=== PATIENT | female | born 1985 | race African-American/Black ===

== ENCOUNTER 2019-09-23 18:23 | Emergency (ER) | payer OTHER ==
[~2019-09-23] VITALS: Ht 170.2 cm; Wt 111.1 kg
[2019-09-23] MEDS ORDERED: AMLODIPINE BESY10 MG ORAL (18:37)
[2019-09-23] MEDS ORDERED: FERROUS SULFAT325 MG ORAL (18:37)
--- NOTE | 2019-09-23 18:40 | NUR ---
ED Nurse Note: Patient walked into ED c/o vaginal bleeding, patient was diagnosed with uterine fibroids, abdominal pain 08/28 radiating to lower back and anemia. patient was told by her PMD to come to ED for further evaluation. patient reports she is on period started on 09/19/19, that is when she started having this pain. patient is alert awake x4 ambulatory, breathing unlabored and even, speaking in full sentences. patient placed on a gown and on a monitor. patient also reports high blood pressure.
[2019-09-23 19:00] VITALS: BP 175/115
--- NOTE | 2019-09-23 19:16 | Emergency Room Report ---
History of Present Illness General Chief Complaint: Hypertension Source: Patient Present Illness HPI Disclaimer: Please note that this report is being documented using DRAGON technology. This can lead to erroneous entry secondary to incorrect interpretation by the dictating instrument. HPI: 34-year-old female with history of uterine fibroid status post embolization , hypertension presents for evaluation of elevated blood pressures and vaginal bleeding. Patient states symptoms have been present for several days. She started her menses on 09/19. She has had heavy flow and lower pelvic cramping. Going through 6-10 pads daily for the past 5 days. She was at her PMDs office today where she found to have elevated blood pressures with systolics in the 210s. She is complaining of headache, chest pressure and some shortness of breath. She also noted some abdominal pain and vomiting over the past few days. No vomiting today, last emesis was yesterday. It was nonbloody and nonbilious. Denies diarrhea, melena or hematochezia. Denies dysuria or hematuria. PMH: Hypertension, uterine fibroids PSH: Fibroid embolization Allergies: Denies Social Hx: Denies Allergies: Coded Allergies: No Known Allergies (Unverified , 09/23/19) Patient History Now: No Nursing Documentation-PMH Past Medical History: No History, Except For Hx Hypertension: Yes Review of Systems All Other Systems: negative except mentioned in HPI Physical Exam Vital Signs Date Time Temp Pulse Resp B/P (MAP) Pulse Ox O2 Delivery O2 Flow Rate FiO2 09/23/19 18:31 98.2 115 20 209/138 (161) 96 Room Air General: Awake and alert, appears uncomfortable and tearful HEENT: NC/AT. EOMI. Cardiovascular: Tachycardic. S1 and S2 normal. No murmur appreciated Resp: Normal work of breathing. No cough, wheezing or crackles appreciated Abdomen: Abdomen is soft, nondistended. Tender in the lower quadrants in the suprapubic region Skin: Intact. No abrasions, laceration or rash over the exposed skin MSK: Normal tone and bulk. Moving all extremities. No obvious deformity. Neuro: Awake and alert. Mentating appropriately. Procedures Critical Care Time Critical Care Time Total critical care time: Approximately 31 minutes Due to a high probability of clinically significant, life threatening deterioration, the patient required the highest level of preparedness to intervene emergently and I personally spent this critical care time directly and personally managing the patient. This critical care time included obtaining a history, examining the patient, pulse oximetry, ordering and reviewing studies , ordering treatments, evaluating response to treatment and updating management plan as needed, frequent reassessment and discussion with other providers as well as arranging for ultimate disposition. This critical to care time was performed to assess and manage the high probability of life-threatening deterioration that could result in multiorgan failure. This critical care time is separate from the separately billable procedures and treating other patients. Medical Decision Making Diagnostic Impression: Primary Impression: Hypertensive urgency Additional Impressions: Hypokalemia Dysfunctional uterine bleeding Anemia Uterine fibroid Ovarian cyst ER Course 34-year-old female history of uterine fibroids presents for vaginal bleeding, abdominal cramping, hypertension and chest pressure. Differential includes was limited to hypertensive urgency, hypertensive emergency, ACS, angina, symptom medic anemia, fibroid bleeding, UTI, pyelonephritis. Laboratory Tests Test 09/23/19 18:45 09/23/19 19:30 White Blood Count 10.2 K/UL (4.8-10.8) Red Blood Count 3.05 M/UL (4.20-5.40) L Hemoglobin 7.0 G/DL (12.0-16.0) L Hematocrit 23.0 % (37.0-47.0) L Mean Corpuscular Volume 75 FL (80-99) L Mean Corpuscular Hemoglobin 23.0 PG (27.0-31.0) L Mean Corpuscular Hemoglobin Concent 30.6 G/DL (32.0-36.0) L Red Cell Distribution Width 16.1 % (11.6-14.8) H Platelet Count 235 K/UL (150-450) Mean Platelet Volume 4.9 FL (6.5-10.1) L Neutrophils (%) (Auto) % (45.0-75.0) Lymphocytes (%) (Auto) % (20.0-45.0) Monocytes (%) (Auto) % (1.0-10.0) Eosinophils (%) (Auto) % (0.0-3.0) Basophils (%) (Auto) % (0.0-2.0) Differential Total Cells Counted 100 Neutrophils % (Manual) 57 % (45-75) Lymphocytes % (Manual) 37 % (20-45) Monocytes % (Manual) 5 % (1-10) Eosinophils % (Manual) 0 % (0-3) Basophils % (Manual) 1 % (0-2) Band Neutrophils 0 % (0-8) Platelet Estimate Adequate Platelet Morphology Normal Polychromasia 1+ Hypochromasia 2+ Anisocytosis 1+ Microcytosis 2+ Prothrombin Time 10.4 SEC (9.30-11.50) Prothrombin Time INR 1.0 (0.9-1.1) PTT 24 SEC (23-33) Sodium Level 142 MMOL/L (136-145) Potassium Level 3.1 MMOL/L (3.5-5.1) L Chloride Level 103 MMOL/L (98-107) Carbon Dioxide Level 25 MMOL/L (21-32) Anion Gap 14 mmol/L (5-15) Blood Urea Nitrogen 8 mg/dL (7-18) Creatinine 0.6 MG/DL (0.55-1.30) Estimate Glomerular Filtration Rate > 60 mL/min (>60) Glucose Level 111 MG/DL (74-106) H Calcium Level 9.2 MG/DL (8.5-10.1) Total Bilirubin 0.4 MG/DL (0.2-1.0) Aspartate Amino Transferase (AST) 41 U/L (15-37) H Alanine Aminotransferase (ALT) 23 U/L (12-78) Alkaline Phosphatase 82 U/L (46-116) Troponin I 0.049 ng/mL (0.000-0.056) Total Protein 8.6 G/DL (6.4-8.2) H Albumin 3.6 G/DL (3.4-5.0) Globulin 5.0 g/dL Albumin/Globulin Ratio 0.7 (1.0-2.7) L Urine Color Pale yellow Urine Appearance Clear Urine pH 6 (4.5-8.0) Urine Specific [place] 1.015 (1.005-1.035) Urine Protein 4+ (NEGATIVE) H Urine Glucose (UA) Negative (NEGATIVE) Urine Ketones Negative (NEGATIVE) Urine Blood 1+ (NEGATIVE) H Urine Nitrite Negative (NEGATIVE) Urine Bilirubin Negative (NEGATIVE) Urine Urobilinogen Normal MG/DL (0.0-1.0) Urine Leukocyte Esterase Negative (NEGATIVE) Urine RBC 2-4 /HPF (0 - 2) H Urine WBC 0-2 /HPF (0 - 2) Urine Squamous Epithelial Cells Occasional /LPF Urine Bacteria None /HPF (NONE) EKG Diagnostic Results EKG Time: 19:12 Rate: tachycardiac Rhythm: NSR ST Segments: no acute changes Other Impression Sinus tachycardia, normal axis, normal intervals, nonspecific ST changes. Rhythm Strip Diag. Results Rhythm Strip Time: 19:12 EP Interpretation: yes Rate: 110s Rhythm: NSR, no PVC's, no ectopy Reevaluation Time: 19:54 Last Vital Signs Date Time Temp Pulse Resp B/P (MAP) Pulse Ox O2 Delivery O2 Flow Rate FiO2 09/23/19 19:01 109 19 Room Air 09/23/19 19:01 175/115 09/23/19 19:00 98.2 100 Reevaluation Impression Moderate anemia seen with a hemoglobin of 7.0. Patient is also hypokalemic. Troponin is within normal limits though at the upper limit of normal. EKG is nonischemic though shows sinus tachycardia. Ultrasound of the pelvis shows uterine fibroid as well as a small ovarian cyst but no free fluid in the cul-de- sac. She will require potassium repletion and transfusion. She will be transferred to [facility] based on her insurance. Dr. Lewis was the accepting physician. Patient is receiving potassium repletion. Discussed with Dr. Lewis who will start transfusion once she is trasferred. Pressures are stable. [facility] Condition: Stable Rohit Bowden MD Sep 23, 2019 19:16
--- NOTE | 2019-09-23 19:18 | NUR ---
HAND-OFF: Report given to Marsha MATA patient on quality assurance monitor body patient's daughter at bedside .
[2019-09-23 19:27] LABS: ANION GAP 14 mmol/L (5-15); BLOOD UREA NITROGEN 8 mg/dL (7-18); CALCIUM 9.2 MG/DL (8.5-10.1); CARBON DIOXIDE 25 MMOL/L (21-32); CHLORIDE 103 MMOL/L (98-107); CREATININE 0.6 MG/DL (0.55-1.30); POTASSIUM 3.1 MMOL/L (3.5-5.1); SODIUM 142 MMOL/L (136-145)
[2019-09-23] MEDS ORDERED: Morphine Sulfate 4mg/ml Inj (IV USE ONLY) IVP ONE (19:30)
[2019-09-23 19:33] LABS: ALANINE AMINOTRANSFERASE 23 U/L (12-78); ALBUMIN 3.6 G/DL (3.4-5.0); ALBUMIN/GLOBULIN RATIO 0.7 (1.0-2.7); ALKALINE PHOSPHATASE 82 U/L (46-116); ASPARTATE AMINO TRANSFERASE 41 U/L (15-37); BILIRUBIN,TOTAL 0.4 MG/DL (0.2-1.0)
[2019-09-23 19:51] LABS: MEAN CORPUSCULAR VOLUME 75 FL (80-99); PLATELET COUNT 235 K/UL (150-450); RED BLOOD COUNT 3.05 M/UL (4.20-5.40); RED CELL DISTRIBUTION WIDTH 16.1 % (11.6-14.8); WHITE BLOOD COUNT 10.2 K/UL (4.8-10.8)
[2019-09-23 19:59] LABS: APPEARANCE,URINE CLEAR; BILIRUBIN, URINE NEGATIVE (NEGATIVE); COLOR,URINE PALE YELLOW; GLUCOSE, URINE (UA) NEGATIVE (NEGATIVE); KETONES,URINE NEGATIVE (NEGATIVE); LEUKOCYTE ESTERASE ,URINE NEGATIVE (NEGATIVE); NITRITE,URINE NEGATIVE (NEGATIVE); PH,URINE 6 (4.5-8.0); PROTEIN,URINE 4+ (NEGATIVE); UROBILINOGEN,URINE NORMAL MG/DL (0.0-1.0)
--- NOTE | 2019-09-23 20:15 | NUR ---
ED Nurse Note: Patient taken over for ultrasound of abdomen and pelvis.
--- NOTE | 2019-09-23 21:04 | NUR ---
ED Nurse Note: Patient returned from ultrasound.
[2019-09-23 22:06] VITALS: BP 179/105
--- NOTE | 2019-09-23 22:07 | NUR ---
ED Nurse Note: Called and gave report to antoine MATA at [facility] [place]. Patient is cleared for transport, new vitals documented. Patient will be transported by [facility] and family will meet her at destination.
[2019-09-23 22:08] VITALS: BP 179/105
--- NOTE | 2019-09-24 14:25 | Diagnostic Imaging Report ---
Indication: Pelvic pain and vaginal bleeding Technique: Transabdominal and transvaginal images of the pelvis. Doppler interrogation of the ovaries Comparison: none Findings: Uterus measures 7.9 cm in length by 5.6 cm AP. Endometrium measures 7 mm thick. No myometrial abnormality. There is some heterogeneity to the myometrium and questionably an ill-defined heterogeneously echogenic structure in the posterior myometrium measuring 4.6 cm in diameter. Small cervical nabothian cysts are noted. The right ovary measures 3.8 cm in length. The left ovary cannot be visualized. The right ovary demonstrates normal blood flow. Impression: Heterogeneous myometrium. 4.5 cm ill-defined echogenic area in the posterior uterine fundus could represent a uterine fibroid, possibly necrotic given stated clinical history of prior fibroid embolization. Incidental finding of cervical nabothian cysts Otherwise essentially unremarkable. Note inability to visualize the left ovary Note that no test result is available in the electronic medical record. If patient is then ectopic cannot be excluded
--- NOTE | 2019-09-24 15:56 | Cardiology Report ---
APPROVED REPORT EKG Measurement Heart [id number] Sinus tachycardia Biatrial enlargement Abnormal ECG
== END 2019-09-23 22:09 | disposition short-term general hospital (02) ==
LOC: EMR 18:50
DX: I16.0 Hypertensive urgency (principal); N93.9 Abnormal uterine and vaginal bleeding, unspecified; D64.9 Anemia, unspecified; D25.9 Leiomyoma of uterus, unspecified; N88.8 Other specified noninflammatory disorders of cervix uteri; R00.0 Tachycardia, unspecified
CPT/HCPCS: 76830; 76856; 80053; 81003; 84484; 85007; 85025; 85610; 85730; 93005; 96365; 96375; J0360; J2270; J2405; J3480; Z7502; 36415; 86850; 86900; 86901; 99291; J8499